=== PATIENT | male | born 1950 | race Caucasian/White ===

== ENCOUNTER 2019-12-08 08:59 | Outpatient (RCR) | payer MEDICARE, OTHER, SELFPAY | END 2019-12-23 14:45 | disposition home or self-care (01) | LOC: HO.WCC 08:59 | PROVIDERS: PCP Internal Medicine; Visit Provider Physician Assistant Surgical | DX: S81.811D Laceration without foreign body, right lower leg, subsequent encounter (principal); J44.9 Chronic obstructive pulmonary disease, unspecified; I10 Essential (primary) hypertension; Z87.891 Personal history of nicotine dependence; Z86.718 Personal history of other venous thrombosis and embolism | CPT/HCPCS: 99203; 99212 ==